=== PATIENT | female | born 1985 | race Caucasian/White ===

== ENCOUNTER 2022-01-01 21:54 | Emergency (ER) | payer OTHER ==
[~2022-01-01] VITALS: Ht 175.3 cm; Wt 136.1 kg
[2022-01-01] MEDS ORDERED: SERT100 PO (22:17)
[2022-01-01] MEDS ORDERED: Vyvanse70 MG PO (22:20)
[2022-01-02] MEDS ORDERED: HYDR1TAB94 PO (03:25)
== END 2022-01-02 05:14 | disposition home or self-care (01) ==
LOC: ER 21:54
DX: S82.852A Displaced trimalleolar fracture of left lower leg, initial encounter for closed fracture (principal); W17.81XA Fall down embankment (hill), initial encounter; Y93.01 Activity, walking, marching and hiking; F41.9 Anxiety disorder, unspecified; Z23 Encounter for immunization
CPT/HCPCS: 73610; 90714; J1170; J1885; J2704; J7030